=== PATIENT | male | born 1960 | race Caucasian/White ===

== ENCOUNTER 2023-09-07 22:30 | Emergency (ER) | payer BC | END 2023-09-08 01:48 | disposition home or self-care (01) | LOC: JP.ED 22:30 | DX: R00.0 Tachycardia, unspecified (principal); E78.00 Pure hypercholesterolemia, unspecified; Z86.79 Personal history of other diseases of the circulatory system; Z79.899 Other long term (current) drug therapy; Z88.5 Allergy status to narcotic agent | CPT/HCPCS: 93005; 99284 ==